=== PATIENT | male | born 2000 | race Caucasian/White ===

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

== ENCOUNTER 2020-09-22 20:13 | Emergency (ER) | payer OTHER ==
[2020-09-22 20:31] VITALS: BP 109/77; PULSE 141
[2020-09-22] MEDS ORDERED: Albuterol/Ipratropium 3.0-0.5 MG/3 ML Neb Soln NEB ONE (20:44)
[2020-09-22] MEDS ORDERED: methylPREDNISolone Sodium Succinate 125 MG/2 ML SDV IVPUSH ONE (20:44)
--- NOTE | 2020-09-22 21:24 | EDM.PDOC ---
ED HPI GENERAL MEDICAL PROBLEM - General Chief Complaint: Respiratory Problem Stated Complaint: HARD TO BREATH, LIGHT HEADED. Time Seen by Provider: 09/22/20 20:45 Source of Information: Reports: Patient, Family (), RN, RN Notes Reviewed History Limitations: Reports: No Limitations - History of Present Illness INITIAL COMMENTS - FREE TEXT/NARRATIVE: Darvin is a 20 y/o male with a history of asthma who presents to the ED via personal vehicle with for complaints of shortness of breath and dry cough. The patient reports his symptoms began two days and have progressively worsened in that time. He reports he smoked approximately two packs of cigarettes two nights ago, which is significantly higher than his normal 2-3 cigarettes per day. He denies fever, shaking chills, sinus congestion, sore throat, chest pain, palpitations, nausea, vomiting, or abdominal pain. The patient has taken no medications for his symptoms as he has lost his albuterol inhaler. He has tried humidified air, sauna, and diffused tea tree oil with no alleviation in symptoms. - Related Data Allergies Allergy/AdvReac Type Severity Reaction Status Date / Time No Known Allergies Allergy Verified 08/12/16 01:49 Home Meds: Home Meds . [No Known Home Meds] 08/12/16 [History] Past Medical History - Past Health History Medical/Surgical History: Denies Medical/Surgical History Respiratory History: Reports: Asthma Neurological History: Reports: Concussion Psychiatric History: Reports: Depression - Past Surgical History Neurological Surgical History: Reports: None Social & Family History - Family History Family Medical History: No Pertinent Family History - Tobacco Use Tobacco Use Status *Q: Current Some Day Tobacco User Years of Tobacco use: 6 Packs/Tins Daily: 0.1 Second Hand Smoke Exposure: Yes - Recreational Drug Use Recreational Drug Use: No ED ROS GENERAL - Review of Systems Review Of Systems: Comprehensive ROS is negative, except as noted in HPI. ED EXAM, GENERAL - Physical Exam Exam: See Below Exam Limited By: Respiratory Distress General Appearance: Mild Distress (Increased work of breathing) Eye Exam: Bilateral Eye: EOMI, Normal Inspection, PERRL (3mm) Ears: Normal External Exam, Normal Canal, Hearing Grossly Normal, Normal TMs Ear Exam: Bilateral Ear: Auricle Normal, Canal Normal, TM normal Nose: Normal Inspection, Normal Mucosa, No Blood Throat/Mouth: Normal Inspection, Normal Lips, Normal Teeth, Normal Gums, Normal Oropharynx, Normal Voice, No Airway Compromise Head: Atraumatic, Normocephalic Neck: Normal Inspection, Supple, Non-Tender, Full Range of Motion. No: Lymphadenopathy (L), Lymphadenopathy (R) Respiratory/Chest: Chest Non-Tender, Wheezing (Inspiratory and expiratory), Accessory Muscle Use. No: Crackles, Rales, Rhonchi, Stridor, Retractions, Prolonged Expiration Cardiovascular: Normal Peripheral Pulses, Regular Rate, Rhythm, No Edema, No Gallop, No JVD, No Murmur, No Rub, Tachycardia Peripheral Pulses: 2+: Radial (L), Radial (R) GI/Abdominal: Normal Bowel Sounds, Soft, Non-Tender, No Distention, No Abnormal Bruit, No Mass, Pelvis Stable (Male) Exam: Deferred Rectal (Males) Exam: Deferred Back Exam: Normal Inspection, Full Range of Motion Extremities: Normal Inspection, Normal Range of Motion, Non-Tender, Normal Capillary Refill, No Pedal Edema Neurological: Alert, Oriented, CN II-XII Intact, Normal Cognition, Normal Gait, No Motor/Sensory Deficits Psychiatric: Normal Affect, Normal Mood Skin Exam: Warm, Dry, Intact, Normal Color, No Rash. No: Cyanosis, Jaundice, Mottled, Pallor #1 Interpretation EKG Date: 09/22/20 Time: 20:54 Rhythm: Other (Sinus Tachycardia) Rate (Beats/Min): 117 [place]: Normal P-Wave: Present QRS: Normal ST-T: Normal QT: Normal MS/PQ Interval: 0.143 Comparison: NA - No Prior EKG EKG Interpretation Comments: ST; No evidence of acute myocardial ischemia Course - Vital Signs Last Recorded V/S: Last Vital Signs Temp 98.9 F 09/22/20 20:24 Pulse 141 H 09/22/20 20:24 Resp 20 09/22/20 20:24 BP 109/77 09/22/20 20:24 Pulse Ox 98 09/22/20 20:24 - Orders/Labs/Meds Labs: Laboratory Tests 09/22/20 09/22/20 09/22/20 Range/Units 20:55 21:00 21:00 WBC 13.8 H (5.0-10.0) 10^3/uL RBC 4.96 (4.6-6.2) 10^6/uL Hgb 15.0 (14.0-18.0) g/dL Hct 40.3 (40.0-54.0) % MCV 81.3 (80-100) fL MCH 30.2 (27.0-34.0) pg MCHC 37.2 H (33.0-35.0) g/dL Plt Count 249 (150-450) 10^3/uL Neut % (Auto) 78.6 H (42.2-75.2) % Lymph % (Auto) 9.5 L (20.5-50.1) % [place] % (Auto) 9.0 H (2-8) % Eos % (Auto) 2.7 (1.0-3.0) % Baso % (Auto) 0.2 (0.0-1.0) % Sodium 138 (136-145) mmol/L Potassium 3.5 (3.5-5.1) mmol/L Chloride 100 (98-107) mmol/L Carbon Dioxide 25 (21-32) mmol/L Anion Gap 16.5 H (7-13) mEq/L BUN 13 (7-18) mg/dL Creatinine 1.11 (0.70-1.30) mg/dL Est Cr Clr Drug Dosing 114.57 mL/min Estimated GFR (MDRD) > 60 BUN/Creatinine Ratio 11.7 (No establ ref range) Glucose 123 H (70-99) mg/dL Calcium 8.7 (8.5-10.1) mg/dL Total Bilirubin 0.7 (0.2-1.0) mg/dL AST 24 (15-37) U/L ALT 58 (16-63) U/L Alkaline Phosphatase 100 (46-116) U/L Troponin I High Sens < 4 (<=76) pg/mL C-Reactive Protein 1.6 H (0.0-0.9) mg/dL Total Protein 7.3 (6.4-8.2) g/dL Albumin 4.2 (3.4-5.0) g/dL Globulin 3.1 Albumin/Globulin Ratio 1.4 Ethyl Alcohol < 3 (0) mg/dL Influenza Type A RNA Negative (NEGATIVE) Influenza Type B RNA Negative (NEGATIVE) SARS-CoV-2 RNA ([place]) Negative (NEGATIVE) Meds: Medications Discontinued Medications Generic Name Dose Route Start Last Admin Trade Name Kristal PRN Reason Stop Dose Admin Albuterol Confirm 09/22/20 22:22 Albuterol 6.7 Gm Inhaler Administered 09/22/20 22:23 Dose 6.7 gm INH .STK-MED ONE Albuterol/Ipratropium 3 ml 09/22/20 20:44 09/22/20 21:07 Albuterol/Ipratropium 3.0-0.5 Mg/3 Ml Neb Soln NEB 09/22/20 20:45 3 ml ONETIME ONE Administration Methylprednisolone Sodium Succinate 125 mg 09/22/20 20:44 09/22/20 21:01 Methylprednisolone Sodium Succinate 125 Mg/2 Ml Sdv IVPUSH 09/22/20 20:45 125 mg ONETIME ONE Administration - Radiology Interpretation Free Text/Narrative:: [facility] Final Radiology Report Call: [phone] assistance Online chat: [email or web address] Name: DARVIN DOTSON Age: 20Years M Date: 09/22/2020 SSN: -- : 2000 Study: CR CHEST 1V FRONTAL Requesting Physician: Glenna Grullon Images: 1 Addl Studies: Provided Clinical History: Chest pain Contrast: Contrast Medium: Contrast Amount: Contrast Method: CONFIDENTIALITY STATEMENT This report is intended only for use by the referring physician, and only in accordance with law. If you received this in error, call [phone]. Page 1 of 1 PROCEDURE INFORMATION: Exam: XR Chest Exam date and time: 09/22/2020 8:43 PM Age: 20 years old Clinical indication: Other: Chest pain TECHNIQUE: Imaging protocol: XR of the chest. Views: 1 view. COMPARISON: No relevant prior studies available. FINDINGS: Lungs: Unremarkable. No consolidation. Pleural spaces: Unremarkable. No pleural effusion. No pneumothorax. Heart/Mediastinum: Unremarkable. No cardiomegaly. Bones/joints: Unremarkable. IMPRESSION: No acute findings. The Thank you for allowing us to participate in the care of your patient. Dictated and Authenticated by: Reese Sutherland MD 09/22/2020 9:56 PM Central Time ([place] & [place]) - Re-Assessments/Exams Free Text/Narrative Re-Assessment/Exam: 09/22/20 DuoNeb and Solu-Medrol 125mg administered. CXR obtained. Patient verbalized improvement in symptoms following medication administration. Findings of examination, lab work, and imaging reviewed with patient. Will treat asthma exacerbation with albuterol MDI and prednisone pulmonary burst. Patient instructed to follow up (establish) with a PCP regarding today's visit. Red flag signs and symptoms which would warrant reevaluation reviewed. Patient and verbalized understanding and agreement with the plan of care. Departure - Departure Time of Disposition: 22:14 Disposition: Home, Self-Care 01 Condition: Good Clinical Impression: Exacerbation of asthma Qualifiers: Asthma severity: mild Asthma persistence: intermittent Qualified Code(s): J45.21 - Mild intermittent asthma with (acute) exacerbation - Discharge Information *PRESCRIPTION DRUG MONITORING PROGRAM REVIEWED*: Not Applicable *COPY OF PRESCRIPTION DRUG MONITORING REPORT IN PATIENT [place]: Not Applicable Instructions: Asthma, Adult, Asthma Attack Prevention, Adult Forms: ED Department Discharge Additional Instructions: Rx: albuterol MDI Rx: prednisone 1.) Take medications, as prescribed. 2.) Refrain from smoking large quantities of cigarettes in a short time frame, and decrease use as able. 3.) Establish with a primary care provider in 3-5 days regarding today's visit. 4.) Return to the emergency department with worsening symptoms despite medications. Sepsis Event Note (ED) - Evaluation Sepsis Screening Result: No Definite Risk - Focused Exam Vital Signs: Vital Signs Temp Pulse Resp BP Pulse Ox 09/22/20 20:24 98.9 F 141 H 20 109/77 98
[2020-09-22 21:33] LABS: ANION GAP 16.5 mEq/L (7-13); CHLORIDE,CL 100 mmol/L (98-107); SODIUM,NA 138 mmol/L (136-145)
[2020-09-22 21:52] LABS: CORONAVIRUS COVID-19 NAA NEGATIVE (NEGATIVE)
--- NOTE | 2020-09-22 21:57 | CR ---
PROCEDURE INFORMATION: Exam: XR Chest Exam date and time: 09/22/2020 8:43 PM Age: 20 years old Clinical indication: Other: Chest pain TECHNIQUE: Imaging protocol: XR of the chest. Views: 1 view. COMPARISON: No relevant prior studies available. FINDINGS: Lungs: Unremarkable. No consolidation. Pleural spaces: Unremarkable. No pleural effusion. No pneumothorax. Heart/Mediastinum: Unremarkable. No cardiomegaly. Bones/joints: Unremarkable. IMPRESSION: No acute findings. The
[2020-09-22] MEDS ORDERED: Albuterol 6.7 GM Inhaler INH ONE (22:22)
== END 2020-09-22 22:29 | disposition home or self-care (01) ==
LOC: DL.ED 20:13
DX: J45.21 Mild intermittent asthma with (acute) exacerbation (principal); Z72.0 Tobacco use; Z20.822 Contact with and (suspected) exposure to COVID-19
CPT/HCPCS: 0240U; 36415; 71045; 80053; 80307; 84484; 85025; 86140; 93005; 96374; 99285; A9270; J2930; J7620-GY

== ENCOUNTER 2021-12-10 15:25 | Emergency (ER) | payer OTHER ==
[2021-12-10 15:58] VITALS: BP 129/86; PULSE 107
[2021-12-10] MEDS ORDERED: Lidocaine 1% 10 ML MDV INJECT ONE (16:10)
[2021-12-10] MEDS ORDERED: Bacitracin Oint 1 GM U/D Packet TOP ONE (16:10)
== END 2021-12-10 16:52 | disposition home or self-care (01) ==
LOC: DL.ED 15:25
DX: S61.212A Laceration without foreign body of right middle finger without damage to nail, initial encounter (principal); F17.210 Nicotine dependence, cigarettes, uncomplicated; W26.0XXA Contact with knife, initial encounter
CPT/HCPCS: 12001; 99282

== ENCOUNTER 2022-10-22 15:34 | Emergency (ER) | payer OTHER ==
[2022-10-22] MEDS ORDERED: Sodium Chloride 0.9% 10 ML Syringe FLUSH PRN (15:46)
[2022-10-22] MEDS ORDERED: Ketorolac 30 MG/ML SDV IVPUSH ONE (15:46)
[2022-10-22 16:03] LABS: BASOPHILS PERCENT AUTO 0.2 % (0.0-1.0); EOSINOPHILS PERCENT AUTO 1.2 % (1.0-3.0); HEMATOCRIT 38.9 % (40.0-54.0); HEMOGLOBIN 14.2 g/dL (14.0-18.0); LYMPHOCYTES PERCENT AUTO 13.6 % (20.5-50.1); MEAN CORPUSCULAR HEMOGLOBIN 29.7 pg (27.0-34.0); MEAN CORPUSCULAR HGB CONC 36.5 g/dL (33.0-35.0); MEAN CORPUSCULAR VOLUME 81.4 fL (80-100); MONOCYTES PERCENT AUTO 12.3 % (2-8); NEUTROPHILS PERCENT AUTO 72.7 % (42.2-75.2); PLATELET COUNT,PLT 265 10^3/uL (150-450); RED BLOOD CELL COUNT 4.78 10^6/uL (4.6-6.2); WHITE BLOOD CELL COUNT,WBC 8.6 10^3/uL (5.0-10.0)
[2022-10-22 16:05] LABS: APPEARANCE,URINE CLEAR (CLEAR); BILIRUBIN,URINE NEGATIVE (NEGATIVE); COLOR,URINE YELLOW (YELLOW); GLUCOSE,URINE NEGATIVE (NEGATIVE); KETONES,URINE NEGATIVE (NEGATIVE); LEUKOCYTE ESTERASE,URINE NEGATIVE (NEGATIVE); NITRITE,URINE NEGATIVE (NEGATIVE); OCCULT BLOOD,URINE NEGATIVE (NEGATIVE); PROTEIN,URINE NEGATIVE (NEGATIVE); UROBILINOGEN,URINE 0.2 mg/dL (0.2-1.0)
[2022-10-22 16:21] LABS: LACTIC ACID 0.7 mmol/L (0.4-2.0)
[2022-10-22 16:30] LABS: A/G RATIO 1.2; ALBUMIN 4.1 g/dL (3.4-5.0); ANION GAP 12.4 mEq/L (7-13); BILIRUBIN TOTAL 0.9 mg/dL (0.2-1.0); BUN/CREATININE RATIO 17.7 (No establ ref range); C-REACTIVE PROTEIN 1.09 ng/dL (<=0.30); CREATININE 0.79 mg/dL (0.70-1.30); EST CRCL DRUG DOSING (CG) 153.57 mL/min; POTASSIUM,K 4.4 mmol/L (3.5-5.1); PROTEIN TOTAL,TP 7.6 g/dL (6.4-8.2)
[2022-10-22 16:47] VITALS: BP 120/80; PULSE 80
== END 2022-10-22 16:37 | disposition home or self-care (01) ==
LOC: DL.ED 15:34
DX: N45.2 Orchitis (principal); N45.1 Epididymitis; F17.210 Nicotine dependence, cigarettes, uncomplicated
CPT/HCPCS: 36415; 76870; 80053; 81003; 83605; 85025; 86140; 96374; 99284; J1885; J3490